=== PATIENT | male | born 1940 | race Caucasian/White ===

== ENCOUNTER 2017-08-20 14:03 | Emergency (ER) | payer MEDICARE, BC ==
[2017-08-20] MEDS ORDERED: Ketorolac 60 MG/2 ML SDV IM ONE (15:10)
--- NOTE | 2017-08-20 15:14 | EDM.PDOC ---
ED HPI GENERAL MEDICAL PROBLEM - General Chief Complaint: Upper Extremity Injury/Pain Stated Complaint: PAIN IN RIGHT SHOULDER BLADE AREA Time Seen by Provider: 08/20/17 15:05 Source of Information: Reports: Patient, Family, RN Notes Reviewed History Limitations: Reports: No Limitations - History of Present Illness INITIAL COMMENTS - FREE TEXT/NARRATIVE: 77-year-old gentleman presents emergency department today with complaint of right shoulder pain he states the pain is behind his shoulder blade he does have chronic issues with the right shoulder itself this pain feels different it is also exacerbated by deep breath he does have a history of pulmonary embolism several years ago denies any shortness of breath or fevers - Related Data Allergies Allergy/AdvReac Type Severity Reaction Status Date / Time indomethacin [From Indocin] Allergy Irritabilit Verified 08/20/17 14:49 y Home Meds: Home Meds Citalopram [Citalopram HBr] 08/20/17 [History] Omeprazole Magnesium [Prilosec Otc] 08/20/17 [History] Zolpidem Tartrate [Ambien] 08/20/17 [History] Past Medical History Cardiovascular History: Reports: Hypertension Respiratory History: Reports: PE Gastrointestinal History: Reports: GI Bleed Genitourinary History: Reports: BPH Musculoskeletal History: Reports: Arthritis, Osteoarthritis Neurological History: Reports: Concussion Oncologic (Cancer) History: Reports: Prostate - Past Surgical History Male Surgical History: Reports: Prostatectomy Social & Family History - Tobacco Use Smoking Status *Q: Never Smoker Review of Systems - Review of Systems Review Of Systems: See Below Constitutional: Reports: No Symptoms Respiratory: Reports: Shortness of Breath (With a deep breath secondary to pain) Cardiovascular: Reports: No Symptoms GI/Abdominal: Reports: No Symptoms Musculoskeletal: Reports: Shoulder Pain ED EXAM, GENERAL - Physical Exam Exam: See Below Free Text/Narrative:: Examination of the right shoulder I cannot appreciate any erythema there is no edema noted he has full range of motion shoulder I cannot appreciate any point tenderness Exam Limited By: No Limitations General Appearance: Alert, WD/WN, No Apparent Distress Respiratory/Chest: No Respiratory Distress, Lungs Clear, Normal Breath Sounds, No Accessory Muscle Use Cardiovascular: Regular Rate, Rhythm, No Murmur GI/Abdominal: Soft, Non-Tender Course - Vital Signs Last Recorded V/S: Last Vital Signs Temp 97.3 F 08/20/17 15:04 Pulse 82 12/15/17 15:04 Resp 14 08/20/17 15:04 BP 179/91 H 08/20/17 15:04 Pulse Ox 95 08/20/17 15:04 - Orders/Labs/Meds Labs: Laboratory Tests 08/20/17 08/20/17 08/20/17 Range/Units 15:20 15:20 15:20 WBC 5.4 (4.5-11.0) K/uL RBC 5.09 (4.30-5.90) M/uL Hgb 15.7 H (12.0-15.0) g/dL Hct 44.6 (40.0-54.0) % MCV 88 (80-98) fL MCH 31 (27-31) pg MCHC 35 (32-36) % Plt Count 169 (150-400) K/uL Neut % (Auto) 33 L (36-66) % Lymph % (Auto) 48 H (24-44) % [place] % (Auto) 14 H (2-6) % Eos % (Auto) 5 H (2-4) % Baso % (Auto) 1 (0-1) % D-Dimer, Quantitative 115 (0.0-400.0) ng/mL Sodium 141 (140-148) mmol/L Potassium 3.9 (3.6-5.2) mmol/L Chloride 102 (100-108) mmol/L Carbon Dioxide 31 (21-32) mmol/L Anion Gap 8.3 (5.0-14.0) mmol/L BUN 15 (7-18) mg/dL Creatinine 1.0 (0.8-1.3) mg/dL Est Cr Clr Drug Dosing 67.98 mL/min Estimated GFR (MDRD) > 60 (>60) Glucose 124 H (74-106) mg/dL Calcium 8.5 (8.5-10.1) mg/dL Total Bilirubin 0.6 (0.2-1.0) mg/dL AST 37 (15-37) U/L ALT 81 H (12-78) U/L Alkaline Phosphatase 115 (46-116) U/L Total Protein 7.4 (6.4-8.2) g/dL Albumin 4.0 (3.4-5.0) g/dL Globulin 3.4 (2.3-3.5) g/dL Albumin/Globulin Ratio 1.2 (1.2-2.2) Meds: Medications Discontinued Medications Generic Name Dose Route Start Last Admin Trade Name Min PRN Reason Stop Dose Admin Ketorolac Tromethamine 60 mg 08/20/17 15:10 08/20/17 15:18 Toradol IM 08/20/17 15:11 60 mg ONETIME ONE Administration Departure - Departure Time of Disposition: 16:13 Disposition: Home, Self-Care 01 Condition: Good Clinical Impression: Right shoulder pain Qualifiers: Chronicity: acute Qualified Code(s): M25.511 - Pain in right shoulder - Discharge Information Referrals: PCP,None [Primary Care Provider] - Forms: ED Department Discharge Additional Instructions: Continue to use Tylenol or ibuprofen as needed for pain control, Please followup with your primary care provider in 3-5 days if not better, please call return to the emergency department with worsening of symptoms. - Assessment/Plan Plan: Assessment Acuity = acute Site and laterality = right shoulder pain Etiology = unknown etiology concern for muscle skeletal injury Manifestations = none Location of injury = Home Lab values = CBC, d-dimer, CMP all within normal limits Plan He had good improvement of the shoulder pain with Toradol, I have him follow-up with his primary care in 3-5 days if not better continue use Tylenol or ibuprofen as needed for pain control Patient was in agreement with the plan all questions were answered, they were instructed to return to the emergency department or call for worsening symptoms. This note was dictated using [employer] voice recognition software please call with any questions.
== END 2017-08-20 17:06 | disposition home or self-care (01) ==
LOC: JP.ED 14:03
DX: M25.511 Pain in right shoulder (principal); I10 Essential (primary) hypertension; Z88.8 Allergy status to other drugs, medicaments and biological substances
CPT/HCPCS: 36415; 80053; 85025; 85379; 96372; 99284; J1885; 99283